=== PATIENT | male | born 1965 | race Caucasian/White ===

== ENCOUNTER 2017-06-13 17:22 | Emergency (ER) | payer BC, OTHER ==
[2017-06-13 20:02] VITALS: BP 154/80
--- NOTE | 2017-06-13 20:19 | ED ---
Respiratory - HPI Summary HPI Summary: 52 yr old male with 5 days of runny nose, coughing, feels crackles in the left anterior chest with the coughing. He coughed up yellow sputum today. Denies fever. He has had some sinus congestion. 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, VASECTOMY Infectious Disease History: No Infectious Disease History: Denies: Traveled Outside the [place] in Last 30 Days - Family History Known Family History: Positive: Other - cancer - Social History Occupation: Employed Full-time Alcohol Use: None Substance Use Type: Reports: None Smoking Status (MU): Never Smoked Tobacco Review of Systems Constitutional: Negative Eyes: Negative Positive: Nasal Discharge Cardiovascular: Negative Positive: Cough Gastrointestinal: Negative Genitourinary: Negative Musculoskeletal: Negative Neurological: Negative Psychological: Normal All Other Systems Reviewed And Are Negative: Yes Physical Exam Triage Information Reviewed: Yes Vital Signs On Initial Exam: Initial Vitals Temp Pulse Resp BP Pulse Ox 98.5 F 76 16 154/80 99 06/13/17 19:56 06/13/17 19:56 06/13/17 19:56 06/13/17 19:56 06/13/17 19:56 Vital Signs Reviewed: Yes Appearance: Positive: Well-Appearing, No Pain Distress Skin: Positive: Warm, Skin Color Reflects Adequate Perfusion Head/Face: Positive: Normal Head/Face Inspection Eyes: Positive: EOMI ENT: Positive: Normal ENT inspection, Pharynx normal, TMs normal, Uvula midline. Negative: Muffled voice, Hoarse voice, Sinus tenderness Respiratory/Lung Sounds: Positive: Clear to Auscultation, Breath Sounds Present Cardiovascular: Positive: RRR. Negative: Murmur Abdomen Description: Positive: Nontender Musculoskeletal: Positive: Strength/ROM Intact Neurological: Positive: Sensory/Motor Intact, Alert, Oriented to Person Place, Time, CN Intact II-III Psychiatric: Positive: Normal - Edgard Coma Scale Best Eye Response: 4 - Spontaneous Best Motor Response: 6 - Obeys Commands Best Verbal Response: 5 - Oriented Diagnostics - Vital Signs Vital Signs Temp Pulse Resp BP Pulse Ox 06/13/17 19:56 98.5 F 76 16 154/80 99 - Laboratory Lab Statement: Any lab studies that have been ordered have been reviewed, and results considered in the medical decision making process. - Radiology chest xray Xray Interpretation: No Acute Changes Radiology Interpretation Completed By: Radiologist Disposition - Course Course Of Treatment: 52 yr old with cough, runny nose. URI symptoms. LUngs clear and chest xray neg. No pneumonia. DC home. - Diagnoses Provider Diagnoses: Upper respiratory infection, Hypertension Discharge - Discharge Plan Condition: Good Disposition: HOME Patient Education Materials: Upper Respiratory Infection (ED), Hypertension (ED ) Referrals: Kevin To MD [Primary Care Provider] -
--- NOTE | 2017-06-13 20:36 | RAD ---
INDICATION: Productive cough COMPARISON: None TECHNIQUE: PA and lateral views of the chest were obtained. FINDINGS: The heart and mediastinum are normal in size and contour. The lungs are grossly clear. There is no evidence of large pleural effusion. Visualized bones are normal for the patient's age. There is no radiographic evidence of free air beneath the diaphragm IMPRESSION: No radiographic evidence of acute cardiopulmonary disease.
== END 2017-06-13 21:02 | disposition home or self-care (01) ==
LOC: UCCORT 17:22
DX: J06.9 Acute upper respiratory infection, unspecified (principal); I10 Essential (primary) hypertension
CPT/HCPCS: 71046; 99211; G0463

== ENCOUNTER 2017-08-22 17:44 | Emergency (ER) | payer BC ==
[2017-08-22 20:02] VITALS: BP 158/86
--- NOTE | 2017-08-22 20:29 | UC ---
Skin Complaint HPI - HPI Summary HPI Summary: 3 days of mildly painful red rash on left upper back and shoulder. Yesterday noticed cluster on the front of his shoulder. He has some mild muscle aching. No fever, nausea or headache - History of Current Complaint Chief Complaint: UCSkin Time Seen by Provider: 08/22/17 20:08 Stated Complaint: SKIN COMPLAINT Hx Obtained From: Patient Onset/Duration: Gradual Onset, Lasting Days, Still Present Timing: Constant Onset Severity: Moderate Current Severity: Moderate Pain Intensity: 0 Pain Scale Used: 0-10 Numeric Character: Pain, Redness, Raised Aggravating Factor(s): Touch Alleviating Factor(s): Nothing Associated Signs & Symptoms: Negative: Nausea, Fever - Allergy/Home Medications Allergies/Adverse Reactions: Allergies Allergy/AdvReac Type Severity Reaction Status Date / Time No Known Allergies Allergy Verified 08/22/17 20:02 Review of Systems Constitutional: Negative Skin: Rash Respiratory: Negative Cardiovascular: Negative Gastrointestinal: Negative Musculoskeletal: Myalgia All Other Systems Reviewed And Are Negative: Yes PMH/Surg Hx/FS Hx/Imm Hx Previously Healthy: Yes - Surgical History Surgical History: Yes Surgery Procedure, Year, and Place: 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, VASECTOMY - Family History Known Family History: Positive: Hypertension, Other - cancer - Social History Alcohol Use: None Substance Use Type: None Smoking Status (MU): Never Smoked Tobacco Physical Exam Triage Information Reviewed: Yes Appearance: Well-Appearing, No Pain Distress, Well-Nourished Vital Signs: Initial Vital Signs Temp 98.8 F 08/22/17 19:57 Pulse 79 08/22/17 19:57 Resp 16 08/22/17 19:57 BP 158/86 08/22/17 19:57 Pulse Ox 99 08/22/17 19:57 Vital Signs Reviewed: Yes Eyes: Positive: Conjunctiva Clear ENT: Positive: Hearing grossly normal Neck: Positive: Supple, Nontender, No Lymphadenopathy Respiratory: Positive: No respiratory distress, No accessory muscle use Cardiovascular: Positive: Pulses Normal Abdomen Description: Positive: Soft Musculoskeletal: Positive: No Edema Neurological: Positive: Alert Psychological: Positive: Age Appropriate Behavior Skin: Positive: rashes - Clusters of vesicles on left upper back, left lateral shoulder and in left supraclavicular region Course/Dx - Diagnoses Provider Diagnoses: SHINGLES Discharge - Sign-Out/Discharge Documenting (check all that apply): Discharge - Discharge Plan Condition: Stable Disposition: HOME Prescriptions: Valacyclovir HCl [Valacyclovir] 1 gm PO TID #21 tab Patient Education Materials: Domenica (ED) Referrals: Kevin To MD [Primary Care Provider] - If Needed Additional Instructions: YOUR BLOOD PRESSURE WAS ELEVATED TODAY (158/86). THIS MAY BE DUE TO YOUR ACUTE CONDITION. MONITOR AND FOLLOW-UP WITH YOUR PCP WITHIN 4 WEEKS IF IT HAS NOT RETURNED TO NORMAL. - Billing Disposition and Condition Condition: STABLE Disposition: HOME
== END 2017-08-22 20:31 | disposition home or self-care (01) ==
LOC: UCCORT 17:44
DX: B02.9 Zoster without complications (principal)
CPT/HCPCS: 99212; G0463

== ENCOUNTER 2018-02-01 11:34 | Day surgery (SDC) | payer BC, OTHER ==
[~2018-02-01 11:34] MED LIST: Buffered Lidocaine 0.9% SYRIN* 5 ML/SYR SYRINGE INTRADERM ONE; Dexamethasone IV* 4 MG/ML 1 ML (4 MG) IV SLOW PU ONE; Famotidine IV* 10 MG/ML 2 ML (20 mg) IV ONE
[2018-02-01] MEDS ORDERED: Dexamethasone IV* 4 MG/ML 1 ML (4 MG) ONE (11:50)
[2018-02-01] MEDS ORDERED: ceFAZolin 2 GM PREMIX in ORs 2 GM/50 ML BAG IVPB ONE (11:50)
[2018-02-01] MEDS ORDERED: Famotidine IV* 10 MG/ML 2 ML (20 mg) ONE (11:50)
[2018-02-01] MEDS ORDERED: fentaNYL* 50 MCG/ML 2 ML VIAL (100 MCG VIAL) ONE ×2 (13:41→14:55)
[2018-02-01] MEDS ORDERED: Midazolam* 1 MG/ML 5 ML VIAL (5 MG) ONE (13:41)
[2018-02-01] MEDS ORDERED: Lidocaine 2% PF * 5 ML VIAL ONE (13:41)
[2018-02-01] MEDS ORDERED: Propofol* 10 MG/ML 20 ML BTL IV PUSH ONE (13:41)
[2018-02-01] MEDS ORDERED: ROPIVACAINE 5 MG/ML 30 ML BTL (0.5%) ONE (13:48)
[2018-02-01] MEDS ORDERED: Ondansetron INJ* 2 MG/ML VIAL ONE (15:23)
[2018-02-01 16:09] VITALS: BP 146/90
[2018-02-01] MEDS ORDERED: Ibuprofen TAB* 600 MG ONE (16:34)
--- NOTE | 2018-02-10 04:44 | OP ---
OPERATIVE REPORT: DATE OF OPERATION: 02/01/18 DATE OF : 61 SURGEON: Curtis Gonsalves MD CASEWORKER: NIKITA Gross An cancer genetics assistant was needed for the entirety of the procedure to aid in positioning of the arm and retraction. ANESTHESIOLOGIST: Dr. Conn. ANESTHESIA: General. PRE-OP DIAGNOSIS: Right completely ruptured and retracted distal biceps tendon. POST-OP DIAGNOSIS: Right completely ruptured and retracted distal biceps tendon. OPERATIVE PROCEDURE: Repair of right distal biceps tendon. INDICATIONS: Trey is 52. He had felt a pop at work and had immediate pain and discomfort in the anterior elbow. There was retraction of the distal biceps tendon. We had talked about nonoperative treatment versus surgery. He understands the risks and benefits including risk of neurovascular injury, risk of stiffness, and risk of rerupture of the tendon and he wanted to proceed. ESTIMATED BLOOD LOSS: 5 mL. COMPLICATIONS: None. FINDINGS: As expected. DESCRIPTION OF PROCEDURE: Trey was seen in the preoperative holding area. The correct site, side and procedure were identified. We came back to the operating room. The arm was prepped and draped in the usual fashion. A time- out was performed. The arm was exsanguinated with the Esmarch and the tourniquet inflated to 250 mmHg. I then made a longitudinal incision in the anterior proximal forearm of about 8 to 10 cm. I found the tract for the biceps tendon. There was large amount of hematoma, which was expressed. The biceps tendon was so retracted, I could not retrieve it down into the wound and so I had to make a 2 cm transverse incision about 7 to 8 cm proximal to the elbow flexion crease. I spread down bluntly and opened the fascia. I again evacuated more hematoma and irrigated it out. I then retrieved the tendon edge in that wound. The end of the tendon was then debrided back to a clean edge with the use of a sterile tongue depressor and a 15 blade. I then placed two #2 FiberWire sutures in [place] fashion of the tendon about 5 to 7 cm in length. I then delivered the tendon into the more distal wound. I then followed the prior tract of the distal biceps tendon down staying lateral to the neurovascular structures. I ligated the radial recurrent artery. The remnants of scar tissue on the radial tuberosity were debrided with the rongeur and the curette until the margins of the radial tuberosity were nicely visualized with the forearm in full supination. I then used the pineapple savannah to create a longitudinal trough just large enough to receive the tendon. I then allowed the forearm to pronate and used 2-[address] 2 bone tunnels into my trough. A 0 Prolene suture was used to pass 1 limb of each #2 FiberWire out of the more distal and then out of the more proximal bone tunnels. I then used one of the two #2 FiberWire to hold tension and bring the tendon down into the bony trough. I tied off the other #2 FiberWire. I then tied off the second #2 FiberWire. The tendon was nicely seated into the bony trough. It was stable as I gently flexed and extended the arm. Ultimately, I could only extend the elbow to about 30 degrees before it just got too tight and I did not want to extend any further. There was full pronation and supination. Everything was looking good. We made sure we had good hemostasis. Subcutaneous tissue was then approximated with 3-0 Vicryl and the skin was closed on both incisions with 3-0 Monocryl and Steri- Strips. A long arm splint was applied at the elbow in about 80 degrees of flexion. The tourniquet was deflated. The hand pinked up immediately. He was taken to recovery room in stable condition. [id number]/CPS #: [id number] CHARITY
== END 2018-02-01 16:46 | disposition home or self-care (01) ==
LOC: OREAST 11:34
PROVIDERS: ATTEND Orthopaedic Surgery Hand Surgery
DX: S46.211A Strain of muscle, fascia and tendon of other parts of biceps, right arm, initial encounter (principal); X50.0XXA Overexertion from strenuous movement or load, initial encounter; Y92.89 Other specified places as the place of occurrence of the external cause; Y99.0 Civilian activity done for income or pay
CPT/HCPCS: A9270-GY; J0690; J1100; J2250; J2405; J2704; J2795; J3010